=== PATIENT | male | born 2000 | race American Indian/Alaskan Native ===

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

== ENCOUNTER 2019-07-04 17:18 | Emergency (ER) | payer SELFPAY ==
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
[2019-07-04 18:06] VITALS: BP 112/64
== END 2019-07-04 19:00 | disposition left against medical advice (07) ==
LOC: ED 17:18
DX: R42 Dizziness and giddiness (principal); Z53.21 Procedure and treatment not carried out due to patient leaving prior to being seen by health care provider

== ENCOUNTER 2021-05-15 07:05 | Emergency (ER) | payer SELFPAY ==
[2021-05-15 07:20] VITALS: BP 126/84
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
== END 2021-05-15 08:59 | disposition home or self-care (01) ==
LOC: ED 07:05
DX: M25.511 Pain in right shoulder (principal); Z79.899 Other long term (current) drug therapy; Z91.018 Allergy to other foods
CPT/HCPCS: 99282; 99283

== ENCOUNTER 2021-08-05 08:00 | Emergency (ER) | payer SELFPAY ==
[2021-08-05 08:54] LABS: Bacteria,Urine 1+ /HPF (Negative); Mucus,Urine FEW /HPF
--- NOTE | 2021-08-05 08:57 | Emergency Department Report ---
ED Male HPI - General Chief complaint: Urogenital-Male Stated complaint: BLOOD CLOT WHEN URINE Time Seen by Provider: 08/05/21 08:07 Source: patient Mode of arrival: Ambulatory Limitations: No Limitations - History of Present Illness Initial comments: This is a 21-year-old male presents the emergency department with a chief complaint of dysuria and hematuria has been intermittent for the past few days. He reports he will occasionally see small clots in the urine when he urinates. He denies any known past medical history, current medications or known allergies to medications. He does report when he was a child he had to have what sounds like a urinary catheter placed in the penis for similar problem. He denies any associated fever, chills, night sweats, headache, dizziness, or vision, nausea,, diarrhea, chest pain, shortness of breath, weakness or any other associated symptoms. - Related Data Previous Rx's Medication Instructions Recorded Last Taken Type Azithromycin [Zithromax TAB] 250 mg PO QDAY #6 tablet 08/07/15 Unknown Rx Prednisone [predniSONE 10 mg 10 mg PO .TAPER #1 tab.ds.pk 08/07/15 Unknown Rx (6-Day Pack, 21 Tabs)] Promethazine /Codeine 5 ml PO Q6H PRN #100 ml 08/07/15 Unknown Rx [Phenergan/Codeine 6.25-10 mg/5Ml] Naproxen 500 mg PO BID PRN #20 tablet 05/15/21 Unknown Rx methocarbamoL [Methocarbamol] 750 mg PO TID PRN #24 tablet 05/15/21 Unknown Rx predniSONE [Deltasone] 20 mg PO BID 3 Days #6 tab 05/15/21 Unknown Rx DOXYCYCLINE Hyclate [Vibramycin 100 mg PO Q12HR #20 capsule 08/05/21 Unknown Rx CAP] Allergies Allergy/AdvReac Type Severity Reaction Status Date / Time ORANGES Allergy Hives Uncoded 05/15/21 07:18 ED Review of Systems ROS: Stated complaint: BLOOD CLOT WHEN URINE Other details as noted in HPI Comment: All other systems reviewed and negative Constitutional: denies: chills, fever Eyes: denies: eye pain, eye discharge, vision change ENT: denies: ear pain, throat pain Respiratory: denies: cough, shortness of breath, wheezing Cardiovascular: denies: chest pain, palpitations Endocrine: no symptoms reported Gastrointestinal: denies: abdominal pain, nausea, diarrhea Genitourinary: dysuria, hematuria. denies: urgency Musculoskeletal: denies: back pain, joint swelling, arthralgia Skin: denies: rash, lesions Neurological: denies: headache, weakness, paresthesias Psychiatric: denies: anxiety, depression Hematological/Lymphatic: denies: easy bleeding, easy bruising ED Past Medical Hx - Past Medical History Previous Medical History?: No - Surgical History Past Surgical History?: No - Family History Family history: no significant - Social History Smoking Status: Never Smoker Substance Use Type: None - Medications Home Medications: Home Medications Medication Instructions Recorded Confirmed Last Taken Type Azithromycin [Zithromax TAB] 250 mg PO QDAY #6 tablet 08/07/15 Unknown Rx Prednisone [predniSONE 10 mg 10 mg PO .TAPER #1 tab.ds.pk 08/07/15 Unknown Rx (6-Day Pack, 21 Tabs)] Promethazine /Codeine 5 ml PO Q6H PRN #100 ml 08/07/15 Unknown Rx [Phenergan/Codeine 6.25-10 mg/5Ml] Naproxen 500 mg PO BID PRN #20 tablet 05/15/21 Unknown Rx methocarbamoL [Methocarbamol] 750 mg PO TID PRN #24 tablet 05/15/21 Unknown Rx predniSONE [Deltasone] 20 mg PO BID 3 Days #6 tab 05/15/21 Unknown Rx DOXYCYCLINE Hyclate [Vibramycin 100 mg PO Q12HR #20 capsule 08/05/21 Unknown Rx CAP] ED Physical Exam - General Limitations: No Limitations General appearance: alert, in no apparent distress - Head Head exam: Present: atraumatic, normocephalic - Eye Eye exam: Present: normal appearance, PERRL, EOMI Pupils: Present: normal accommodation - ENT ENT exam: Present: normal exam, normal orophraynx, mucous membranes moist - Neck Neck exam: Present: normal inspection, full ROM. Absent: tenderness, meningismus - Respiratory Respiratory exam: Present: normal lung sounds bilaterally. Absent: respiratory distress, wheezes, rales, rhonchi, stridor - Cardiovascular Cardiovascular Exam: Present: regular rate, normal rhythm. Absent: systolic murmur, diastolic murmur, rubs, gallop - GI/Abdominal GI/Abdominal exam: Present: soft, normal bowel sounds. Absent: distended, tenderness, guarding, rebound, rigid - Rectal Rectal exam: Present: deferred - exam: Present: normal inspection, other (Normal cremasteric reflex bilaterall y. No lesions. No inguinal hernias. No testicular or epididymal tenderness bilaterally.). Absent: testicular tenderness - Extremities Exam Extremities exam: Present: normal inspection, full ROM, normal capillary refill. Absent: tenderness, calf tenderness - Back Exam Back exam: Present: normal inspection, full ROM. Absent: tenderness, CVA tenderness (R), CVA tenderness (L) - Neurological Exam Neurological exam: Present: alert, oriented X3 - Psychiatric Psychiatric exam: Present: normal affect, normal mood - Skin Skin exam: Present: warm, dry, intact, normal color. Absent: rash ED Course - Reevaluation(s) Reevaluation #1: 08/05/21 08:57 Vitals per nursing note include a temperature of 98.2, blood pressure 123/84, pulse rate of 78, respiratory rate of 18 and O2 saturation 100% on room air which were all normal ED Medical Decision Making - Lab Data Lab Results 08/05/21 Range/Units 08:22 Urine Color Straw (Yellow) Urine Turbidity Clear (Clear) Urine pH 6.0 (5.0-7.0) Ur Specific [place] 1.025 (1.003-1.030) Urine Protein <15 mg/dl (Negative) mg/dL Urine Glucose (UA) Negative (Negative) mg/dL Urine Ketones Negative (Negative) mg/dL Urine Blood Small A (Negative) Urine Nitrite Negative (Negative) Ur Reducing Substances Not Reportable Urine Bilirubin Negative (Negative) Urine Ictotest Not Reportable Urine Urobilinogen < 2.0 (<2.0) mg/dL Ur Leukocyte Esterase Small (Negative) Urine WBC (Auto) 36.0 H (0.0-6.0) /HPF Urine RBC (Auto) 6.0 (0.0-6.0) /HPF U Epithel Cells (Auto) 3.0 (0-13.0) /HPF Urine Bacteria (Auto) 1+ (Negative) /HPF Urine Mucus Few /HPF - Medical Decision Making Patient's exam is unremarkable. Urine was consistent with pyuria. Patient will be given Rocephin IM and azithromycin for treatment of gonorrhea chlamydia. Patient given outpatient follow-up with urology and return precautions for any change or worsening symptoms. Verbalized understand the diagnosis, treatment and follow-up instructions all his questions were answered. - Differential Diagnosis Urethritis, UTI, epididymitis Critical care attestation.: If time is entered above; I have spent that time in minutes in the direct care of this critically ill patient, excluding procedure time. ED Disposition Clinical Impression: Urethritis Disposition: HOME / SELF CARE / HOMELESS Is pt being admited?: No Condition: Stable Instructions: Urethritis, Adult Prescriptions: DOXYCYCLINE Hyclate [Vibramycin CAP] 100 mg PO Q12HR #20 capsule Referrals: [facility] [Provider Group] - 3-5 Days [facility] [Outside] - 3-5 Days RADHA BECKETT MD [Staff Physician] - 3-5 Days Forms: STI Treatment and Prevention Time of Disposition: 09:21
[2021-08-05 08:58] LABS: Color,Urine Straw (Yellow)
[2021-08-05 09:01] LABS: Bilirubin,Urine Negative (Negative)
[2021-08-05 09:02] LABS: Protein,Urine <15 mg/dL mg/dL (Negative); Urobilinogen,Urine < 2.0 mg/dL (<2.0)
[2021-08-05 09:04] LABS: Blood,Urine Small (Negative)
[2021-08-05] MEDS ORDERED: LIDOCAINE-MPF (1%) 10 MG/1 ML VIAL 5 ML INFILTRATI ONE (09:18)
[2021-08-05 10:09] VITALS: BP 128/83
== END 2021-08-05 10:09 | disposition home or self-care (01) ==
LOC: ED 08:00
DX: N34.2 Other urethritis (principal); Z91.018 Allergy to other foods
CPT/HCPCS: 81001; 87086; 96372; 99283; J0696; J3490